=== PATIENT | female | born 1995 | race Caucasian/White ===

== ENCOUNTER 2017-03-22 12:02 | Emergency (ER) | payer OTHER ==
[2017-03-22 14:01] VITALS: BP 118/77
--- NOTE | 2017-03-22 14:51 | UC ---
Throat Pain/Nasal Raúl HPI - HPI Summary HPI Summary: 21 y/o female presents to the urgent care c/o sore throat, WEBB, mild dry cough and body aches for the past 4 days. Pt reports she had mononucleosis over the summer and her symptoms feel the same now. Pain with swallowing is 8/10. Mild fever at home. Pt denies SOB, chest pain, abdominal pain, N/V/D, rash, Hx of tick bites. She is up to date with all vaccines for her age. - History of Current Complaint Chief Complaint: UCGeneralIllness Stated Complaint: THROAT COMPLAINT Time Seen by Provider: 03/22/17 14:44 Hx Obtained From: Patient Hx Last Menstrual Period: 03/14/17 ?: No Onset/Duration: Gradual Onset, Lasting Days - 4 days, Still Present Severity: Moderate Pain Intensity: 8 Pain Scale Used: 0-10 Numeric Cough: None Associated Signs & Symptoms: Positive: Dysphagia, Fever - Epiglottits Risk Factors Epiglottis Risk Factors: Negative - Allergies/Home Medications Allergies/Adverse Reactions: Allergies Allergy/AdvReac Type Severity Reaction Status Date / Time No Known Allergies Allergy Verified 03/22/17 14:01 Home Medications: Home Medications Oral Control 1 tab PO DAILY 03/22/17 [History Confirmed 03/22/17] PMH/Surg Hx/FS Hx/Imm Hx Previously Healthy: Yes - Pt denies PMHX - Surgical History Surgical History: Yes Surgery Procedure, Year, and Place: [place] tooth extraction - Family History Known Family History: Positive: Diabetes Family History: cancer, but Pt can't recall what type - Social History Occupation: Student Lives: With Family Alcohol Use: None Substance Use Type: None Smoking Status (MU): Never Smoked Tobacco - Immunization History Vaccination Up to Date: Yes Review of Systems Constitutional: Fever Skin: Negative Eyes: Negative ENT: Sore Throat Respiratory: Cough - dry Cardiovascular: Negative Gastrointestinal: Negative Genitourinary: Negative Motor: Negative Neurovascular: Negative Musculoskeletal: Negative Neurological: Headache Psychological: Negative Is Patient Immunocompromised?: No All Other Systems Reviewed And Are Negative: Yes Physical Exam Triage Information Reviewed: Yes Vital Signs: Initial Vital Signs Temp 100.9 F 03/22/17 13:58 Pulse 125 03/22/17 13:58 Resp 14 03/22/17 13:58 BP 118/77 03/22/17 13:58 Pulse Ox 97 03/22/17 13:58 - Additional Comments VITAL SIGNS: Reviewed. GENERAL: Patient is a well developed and nourished female who is sitting comfortable in the examining table. Patient is not in any acute respiratory distress. HEAD AND FACE: No signs of trauma. No ecchymosis, hematomas or skull depressions. No sinus tenderness. EYES: PERRLA, EOMI x 2, No injected conjunctiva, no nystagmus. No photophobia. EARS: Hearing grossly intact. Ear canals and tympanic membranes are within normal limits. MOUTH: Positive pharynx with erythema, no exudates,positive palatal petechiae. B/L tonsillar enlargement with no exudate. Uvula in midline. NECK: Supple, trachea is midline, Positive anterior cervical lymphadenopathy, no JVD, no carotid bruit, no c-spine tenderness, neck with full ROM. No meningeal signs, no Kernig's or brudzinskis signs. CHEST: Symmetric, no tenderness at palpation LUNGS: Clear to auscultation bilaterally. No wheezing or crackles. CVS: Regular rate and rhythm, S1 and S2 present, no murmurs or gallops appreciated. ABDOMEN: Soft, non-tender. No signs of distention. No rebound no guarding, and no masses palpated. Bowel sounds are normal. EXTREMITIES: FROM in all major joints, no edema, no cyanosis or clubbing. NEURO: Alert and oriented x 3. No acute neurological deficits. Speech is normal and follows commands. SKIN: Dry and warm Throat Pain/Nasal Course/Dx - Course Course Of Treatment: 21 y/o female presents to the urgent care c/o sore throat, WEBB, mild dry cough and body aches for the past 4 days. Pt reports she had mononucleosis over the summer and her symptoms feel the same now. Pain with swallowing is 8/10. Mild fever at home. Pt denies SOB, chest pain, abdominal pain, N/V/D, rash, Hx of tick bites. She is up to date with all vaccines for her age.Hx obtained. Rapid strep ordered, result: negative. Viral pharyngitis. Pt with temp of 100.9F given Ibuprofen PO to decrease temp. Pt tolerated well medication. Pt Rx ibuprofen PO to alleviates symptoms of pain and swelling. Advised on hand washing to avoid spreading. Pt advised to rest, eat well and avoid strenuous exercise. If symptoms do not improve or worsen advised to return to the urgent care or f/u with her PCP for further evaluation and treatment. Pt understood and agreed with plan of care. - Differential Dx/Diagnosis Differential Diagnosis/HQI/PQRI: Laryngitis, Mononucleosis, Otitis Media, Pharyngitis, Sinusitis, Tonsillitis, URI Provider Diagnoses: 1- Viral Pharyngitis Discharge - Discharge Plan Condition: Stable Disposition: HOME Prescriptions: Ibuprofen TAB* [Motrin TAB* 800 MG] 800 mg PO Q6H #30 tab Patient Education Materials: Pharyngitis (ED) Forms: *School Release Referrals: [facility] [Outside] - If Needed Additional Instructions: 1-Please take ibuprofen PO q6-8hrs prn as instructed after meals to alleviate pain and swelling. Increase fluid intake, eat well, rest and avoid strenuous exercise 2-If symptoms do not improve or worsen please return to the urgent care or f/u with your PCP for further evaluation and treatment.
[2017-03-22] MEDS ORDERED: Ibuprofen TAB* 400 MG PO ONE (14:52)
== END 2017-03-22 15:25 | disposition home or self-care (01) ==
LOC: UCCORT 12:02
DX: J02.9 Acute pharyngitis, unspecified (principal); R50.9 Fever, unspecified; R51 Headache; M79.1 Myalgia
CPT/HCPCS: 87502; 87651; 99202; A9270-GY; G0463

== ENCOUNTER 2017-04-12 09:40 | Emergency (ER) | payer OTHER ==
[2017-04-12 10:18] VITALS: BP 127/65
--- NOTE | 2017-04-12 10:35 | UC ---
Eye Complaint HPI - HPI Summary HPI Summary: right eye redness / discharge x 1 day no eye injury , no eye pain , no change in vision, no photophobia no cold sx - History of Current Complaint Chief Complaint: UCEye Stated Complaint: RIGHT EYE COMPLAINT Time Seen by Provider: 04/12/17 10:18 Hx Obtained From: Patient Hx Last Menstrual Period: 04/09/17 ?: No Onset/Duration: Gradual Onset, Lasting Days - 1, Still Present Timing: Constant Severity Initially: Moderate Severity Currently: Moderate Location of Injury: Conjunctiva - right eye Aggravating Factor(s): Nothing Alleviating Factor(s): Nothing Associated Signs And Symptoms: Positive: Drainage (Purulent) - right eye. Negative: Photophobia, Vision Impairment Bilateral, Vision Impairment Right, Vision Impairment Left, Fever, Swelling - Allergies/Home Medications Allergies/Adverse Reactions: Allergies Allergy/AdvReac Type Severity Reaction Status Date / Time No Known Allergies Allergy Verified 04/12/17 10:10 PMH/Surg Hx/FS Hx/Imm Hx Previously Healthy: Yes - Surgical History Surgical History: Yes Surgery Procedure, Year, and Place: [place] tooth extraction - Family History Known Family History: Positive: Diabetes Family History: cancer, but Pt can't recall what type - Social History Alcohol Use: Occasionally Substance Use Type: None Smoking Status (MU): Never Smoked Tobacco - Immunization History Most Recent Influenza Vaccination: FALL 2016 Vaccination Up to Date: Yes Review of Systems Constitutional: Negative Skin: Negative Eyes: Drainage - right eye, Eye Redness - right eye ENT: Negative Respiratory: Negative Is Patient Immunocompromised?: No All Other Systems Reviewed And Are Negative: Yes Physical Exam Triage Information Reviewed: Yes Appearance: Well-Appearing, No Pain Distress, Well-Nourished Vital Signs: Initial Vital Signs Temp 97.9 F 04/12/17 10:11 Pulse 86 04/12/17 10:11 Resp 18 04/12/17 10:11 BP 127/65 04/12/17 10:11 Pulse Ox 100 04/12/17 10:11 Vital Signs Reviewed: Yes Eyes: Positive: Conjunctiva Inflamed - right eye, Discharge - right eye ENT: Positive: Normal ENT inspection, Hearing grossly normal, Pharynx normal, Pharyngeal erythema Neck: Positive: Supple, Nontender, No Lymphadenopathy Respiratory: Positive: Chest non-tender, Lungs clear, Normal breath sounds Cardiovascular: Positive: RRR, No Murmur, Pulses Normal Musculoskeletal Exam: Normal Eye Complaint Course/Dx - Differential Dx/Diagnosis Provider Diagnoses: conjunctivitis right eye Discharge - Discharge Plan Condition: Stable Disposition: HOME Prescriptions: Tobramycin 0.3% OPHTH.KAREY* 1 drop RIGHT EYE Q4H #1 btl Patient Education Materials: Conjunctivitis (ED) Referrals: Non Staff,Doctor [Primary Care Provider] - If Needed
== END 2017-04-12 10:35 | disposition home or self-care (01) ==
LOC: UCCORT 09:40
DX: H10.31 Unspecified acute conjunctivitis, right eye (principal)
CPT/HCPCS: 99212; G0463

== ENCOUNTER 2018-02-08 13:57 | Emergency (ER) | payer OTHER ==
[2018-02-08 14:59] VITALS: BP 152/74
--- NOTE | 2018-02-08 15:25 | UC ---
Throat Pain/Nasal Raúl HPI - HPI Summary HPI Summary: 22 y/o female presents to the urgent care c/o sinus congestion w/ clear nasal discharge and hoarseness for the pst 4 days. Pt reports she had mild low grade fever at the first day of symptoms. Pain w/ swallowing is 3/10. Pt states dry cough started today w/ mild +PND. Pt has taking Sudafed and Robitussin PO to alleviate symptoms. Pt denies SOB, wheezing, chest pain, abdominal pain, N/V/D. Pt is UTD w/ all vaccines for her age. - History of Current Complaint Chief Complaint: UCRespiratory Stated Complaint: SORE THROAT Time Seen by Provider: 02/08/18 15:22 Hx Obtained From: Patient Hx Last Menstrual Period: 02/06/18 ?: No Onset/Duration: Gradual Onset, Lasting Days - 4 days, Still Present, Worse Since - yesterday Severity: Mild Pain Intensity: 3 Pain Scale Used: 0-10 Numeric Cough: Nonproductive Associated Signs & Symptoms: Positive: Dysphagia, Sinus Discomfort, Nasal Discharge - clear, Other - hoarseness - Epiglottits Risk Factors Epiglottis Risk Factors: Negative - Allergies/Home Medications Allergies/Adverse Reactions: Allergies Allergy/AdvReac Type Severity Reaction Status Date / Time No Known Allergies Allergy Verified 02/08/18 14:55 PMH/Surg Hx/FS Hx/Imm Hx Previously Healthy: Yes - Pt denies PMHX - Surgical History Surgical History: Yes Surgery Procedure, Year, and Place: [place] tooth extraction - Family History Known Family History: Positive: Diabetes Family History: cancer, but Pt can't recall what type - Social History Occupation: Student Lives: With Family Alcohol Use: Weekly Alcohol Amount: weekends Substance Use Type: None Smoking Status (MU): Never Smoked Tobacco - Immunization History Most Recent Influenza Vaccination: FALL 2016 Most Recent Tetanus Shot: UTD Vaccination Up to Date: Yes Review of Systems Constitutional: Negative Skin: Negative Eyes: Negative ENT: Sore Throat, Nasal Discharge - clear, Sinus Congestion Respiratory: Cough - dry Cardiovascular: Negative Gastrointestinal: Negative Genitourinary: Negative Motor: Negative Neurovascular: Negative Musculoskeletal: Negative Neurological: Negative Psychological: Negative Is Patient Immunocompromised?: No All Other Systems Reviewed And Are Negative: Yes Physical Exam - Summary Physical Exam Summary: VITAL SIGNS: Reviewed. GENERAL: Patient is a well developed and nourished who female adolescent is sitting comfortable in the examining table. Patient is not in any acute respiratory distress. HEAD AND FACE: No signs of trauma. No ecchymosis, hematomas or skull depressions. No sinus tenderness. EYES: PERRLA, EOMI x 2, No injected conjunctiva, no nystagmus. No photophobia. EARS: Hearing grossly intact. Ear canals and tympanic membranes are within normal limits. Nose: edematous and erythematous nasal mucosa w/ clear nasal discharge. MOUTH: Positive no erythema, no tonsillar enlargement. Uvula in midline. NECK: Supple, trachea is midline, Positive anterior cervical lymphadenopathy, no JVD, no carotid bruit, no c-spine tenderness, neck with full ROM. No meningeal signs, no Kernig's or brudzinskis signs. CHEST: Symmetric, no tenderness at palpation LUNGS: Clear to auscultation bilaterally. No wheezing or crackles. CVS: Regular rate and rhythm, S1 and S2 present, no murmurs or gallops appreciated. ABDOMEN: Soft, non-tender. No signs of distention. No rebound no guarding, and no masses palpated. Bowel sounds are normal. EXTREMITIES: FROM in all major joints, no edema, no cyanosis or clubbing. NEURO: Alert and oriented x 3. No acute neurological deficits. Speech is normal and follows commands. SKIN: Dry and warm Triage Information Reviewed: Yes Vital Signs: Initial Vital Signs Temp 98.9 F 02/08/18 14:55 Pulse 92 02/08/18 14:55 Resp 16 02/08/18 14:55 BP 152/74 02/08/18 14:55 Pulse Ox 99 02/08/18 14:55 Throat Pain/Nasal Course/Dx - Course Course Of Treatment: 22 y/o female presents to the urgent care c/o sinus congestion w/ clear nasal discharge and hoarseness for the pst 4 days. Pt reports she had mild low grade fever at the first day of symptoms. Pain w/ swallowing is 3/10. Pt states dry cough started today w/ mild +PND. Pt has taking Sudafed and Robitussin PO to alleviate symptoms. Pt denies SOB, wheezing , chest pain, abdominal pain, N/V/D. Pt is UTD w/ all vaccines for her age. Hx obtained. Pt with URI on examination. Rapid strep:negative. Pt Rx ibuprofen PO to alleviates symptoms. Advised on hand washing and wear a mask to avoid spreading and rest her voice. Pt advised to rest, increase fluid intake, eat well and avoid strenuous exercise. If symptoms do not improve or worsen advised to return to the urgent care or f/u with her PCP for further evaluation and treatment. Pt's BP is elevated today advised to decrease salt in diet, monitor BP and f/u with PCP in 3 days for further management.Pt understood and agreed with plan of care. - Differential Dx/Diagnosis Differential Diagnosis/HQI/PQRI: Laryngitis, Mononucleosis, Pharyngitis, Tonsillitis, URI Provider Diagnoses: 1- Upper respiratory infection. 2-Elevated BP w/o Hx of HTN Discharge - Sign-Out/Discharge Documenting (check all that apply): Patient Departure - D/C home All imaging exams completed and their final reports reviewed: No Studies - Discharge Plan Condition: Stable Disposition: HOME Prescriptions: Ibuprofen TAB* [Motrin TAB* 600 MG] 600 mg PO Q6H PRN #30 tab PRN Reason: Sore Throat Patient Education Materials: Upper Respiratory Infection (ED), Low-Sodium Diet (ED) Forms: *School Release Referrals: [facility] [Outside] Additional Instructions: 1-Please take ibuprofen PO q6-8hrs prn as instructed after meals to alleviate pain and swelling. Increase fluid intake, eat well, rest and avoid strenuous exercise 2-If symptoms do not improve or worsen please return to the urgent care or f/u with your PCP for further evaluation and treatment. 3-Your BP is elevated today. please decrease salt in your diet, monitor BP and if it continues to be elevated please f/u with your PCP for further management - Billing Disposition and Condition Condition: STABLE Disposition: Home
== END 2018-02-08 15:58 | disposition home or self-care (01) ==
LOC: UCCORT 13:57
DX: J06.9 Acute upper respiratory infection, unspecified (principal); R03.0 Elevated blood-pressure reading, without diagnosis of hypertension
CPT/HCPCS: 87651; 99212; G0463

== ENCOUNTER 2018-06-29 09:24 | Emergency (ER) | payer OTHER ==
[2018-06-29 09:42] VITALS: BP 119/71
[2018-06-29] MEDS ORDERED: Ondansetron ODT TAB* 4 MG PO ONE (09:44)
[2018-06-29] MEDS ORDERED: Ondansetron ODT TAB* 4 MG ONE (09:56)
--- NOTE | 2018-06-29 10:08 | UC ---
Nausea/Vomiting/Diarrhea HPI - HPI Summary HPI Summary: Diarrhea started about 2 days ago. Pt had some cramping with her period. She had 2 bouts of diarrhea this morning and has vomitied twice today. Her roomate had the "stomache bug" last week. She is requesting a note for classes today. She has been able to keep a little bit of fluids down. - History of Current Complaint Chief Complaint: UCGI Stated Complaint: NAUSEA, DIARRHEA Time Seen by Provider: 06/29/18 10:07 Hx Obtained From: Patient Hx Last Menstrual Period: 06/26/18 ?: No Onset/Duration: Gradual Onset Timing: Intermittent Episodes Lasting: Severity Initially: Mild Severity Currently: Mild Pain Intensity: 0 Location: Diffuse Character: Cramping - Cramping with her period 2 days ago when diarrhea started. No recent travel outside of the [place] Aggravating Factor(s): Nothing Alleviating Factor(s): Nothing - Has been able to take fluids. Nausea/Vomiting Presence: Nauseated, Vomiting - Vomited while her once time. Vomiting Frequency: Daily - Twice this morning. Nausea/Vomiting Duration: 0-12 hours Diarrhea Presence: Yes Diarrhea Frequency: Daily - About twice a day over the past few days. Twice this morning Diarrhea Duration: 2-3 days Diarrhea Characteristics: Watery - Risk Factors Influenza Risk Factors: Negative Surgical Obstruction Risk Factor(s): Negative - Allergies/Home Medications Allergies/Adverse Reactions: Allergies Allergy/AdvReac Type Severity Reaction Status Date / Time No Known Allergies Allergy Verified 06/29/18 09:38 Home Medications: Home Medications Ibuprofen TAB* [Motrin TAB* 600 MG] 400 mg PO Q6H PRN 06/29/18 [History Confirmed 06/29/18] PMH/Surg Hx/FS Hx/Imm Hx - Additional Past Medical History Additional PMH: [place] teeth out when she was younger. Previously Healthy: Yes - Surgical History Surgical History: Yes Surgery Procedure, Year, and Place: [place] tooth extraction - Family History Known Family History: Positive: Diabetes Family History: cancer, but Pt can't recall what type - Social History Occupation: Student Lives: Dormitory/Roommates Alcohol Use: Weekly Alcohol Amount: weekends Substance Use Type: None Smoking Status (MU): Never Smoked Tobacco - Immunization History Most Recent Influenza Vaccination: FALL 2016 Most Recent Tetanus Shot: UTD Vaccination Up to Date: Yes Review of Systems All Other Systems Reviewed And Are Negative: Yes Constitutional: Positive: Negative Skin: Positive: Negative Eyes: Positive: Negative ENT: Positive: Negative Respiratory: Positive: Negative Cardiovascular: Positive: Negative Gastrointestinal: Positive: Vomiting, Diarrhea, Nausea Genitourinary: Positive: Negative Motor: Positive: Negative Neurovascular: Positive: Negative Musculoskeletal: Positive: Negative Neurological: Positive: Negative Psychological: Positive: Negative Is Patient Immunocompromised?: No Physical Exam - Summary Physical Exam Summary: Well appearing college age female in no distress. Triage Information Reviewed: Yes Appearance: Well-Appearing, No Pain Distress, Well-Nourished Vital Signs: Initial Vital Signs Temp 98.4 F 06/29/18 09:39 Pulse 89 06/29/18 09:39 Resp 15 06/29/18 09:39 BP 119/71 06/29/18 09:39 Pulse Ox 99 06/29/18 09:39 Vital Signs Reviewed: Yes Eye Exam: Normal ENT Exam: Normal Neck exam: Normal Respiratory Exam: Normal Cardiovascular Exam: Normal Abdominal Exam: Normal Abdomen Description: Positive: Nontender, No Organomegaly, Soft Bowel Sounds: Positive: Present Musculoskeletal Exam: Normal Neurological: Positive: Alert, Muscle Tone Normal Psychological Exam: Normal Skin Exam: Normal Naus/Vom/Diarrhea Course/Dx - Course Course Of Treatment: Pt is well-appearing with, more than likely, the "stomach bug" which her college roomate had in the past week. Pt vomitied twice this morning. Once here after being given Zofran. Se is able to retain a small amount of intermittent fluids. Diarrhea twice this morning. I advised her to take OTC Loperamide as directed for the diarrhea. We discussed worsening of symptoms to be rechecked at the [facility] or go to the ER. Pt is agreeable to this. She has been pain free here. - Differential Dx/Diagnosis Differential Diagnoses - Female: Vomiting, Diarrhea Provider Diagnosis: Viral syndrome Condition At Discharge: Good Discharge - Sign-Out/Discharge Documenting (check all that apply): Patient Departure All imaging exams completed and their final reports reviewed: No Studies - Discharge Plan Condition: Good Disposition: HOME Prescriptions: Ondansetron TAB* [Zofran 4 MG Tab*] 4 mg PO Q6H PRN #8 tab PRN Reason: Nausea Patient Education Materials: Acute Nausea and Vomiting (ED) Forms: *School Release Referrals: [facility] [Outside] No Primary Care Phys,NOPCP [Primary Care Provider] - Additional Instructions: May purchase and take Loperamide according to directions. Gradually increase your diet as the day progresses. Stick with fluids most of the day and then soup and crackers later this evening. Follow up at the [facility] if no improvement in 1-2 days. Go to the ER if symptoms worsen, you feel like you are going to pass out. - Billing Disposition and Condition Condition: GOOD Disposition: Home
== END 2018-06-29 10:36 | disposition home or self-care (01) ==
LOC: UCCORT 09:24
DX: B34.9 Viral infection, unspecified (principal); R19.7 Diarrhea, unspecified; R11.2 Nausea with vomiting, unspecified; R10.9 Unspecified abdominal pain
CPT/HCPCS: 99212; A9270-GY; G0463

== ENCOUNTER 2019-07-04 09:54 | Emergency (ER) | payer OTHER ==
[2019-07-04 10:12] VITALS: BP 125/83
--- NOTE | 2019-07-04 10:34 | UC ---
Throat Pain/Nasal Raúl HPI - HPI Summary HPI Summary: 23-year-old female whose had a sore throat and fever since yesterday. - History of Current Complaint Chief Complaint: UCRespiratory Stated Complaint: ST/BODY ACHES Time Seen by Provider: 07/04/19 09:55 Hx Obtained From: Patient Hx Last Menstrual Period: 07/03/19 ?: No Onset/Duration: Gradual Onset Severity: Mild Pain Intensity: 6 Cough: None Associated Signs & Symptoms: Positive: Fever - Allergies/Home Medications Allergies/Adverse Reactions: Allergies Allergy/AdvReac Type Severity Reaction Status Date / Time No Known Allergies Allergy Verified 07/04/19 10:11 Home Medications: Home Medications Ibuprofen TAB* [Motrin TAB* 600 MG] 400 mg PO Q6H PRN 06/29/18 [History Confirmed 07/04/19] Levonorgestrel-Ethin Estradiol [Lessina-28] 1 tab PO DAILY 07/04/19 [History Confirmed 07/04/19] PMH/Surg Hx/FS Hx/Imm Hx Previously Healthy: Yes - Surgical History Surgical History: Yes Surgery Procedure, Year, and Place: [place] tooth extraction - Family History Known Family History: Positive: Diabetes Family History: cancer, but Pt can't recall what type - Social History Occupation: Student Lives: Dormitory/Roommates Alcohol Use: Weekly Alcohol Amount: weekends Substance Use Type: None Smoking Status (MU): Never Smoked Tobacco - Immunization History Most Recent Influenza Vaccination: FALL 2016 Most Recent Tetanus Shot: UTD Vaccination Up to Date: Yes Review of Systems All Other Systems Reviewed And Are Negative: Yes Constitutional: Positive: Fever ENT: Positive: Sore Throat Is Patient Immunocompromised?: No Physical Exam Triage Information Reviewed: Yes Appearance: Well-Appearing, No Pain Distress, Well-Nourished Vital Signs: Initial Vital Signs Temp 99.0 F 07/04/19 10:07 Pulse 110 07/04/19 10:07 Resp 16 07/04/19 10:07 BP 125/83 07/04/19 10:07 Pulse Ox 99 07/04/19 10:07 Vital Signs Reviewed: Yes Eyes: Positive: Conjunctiva Clear ENT: Positive: Pharyngeal erythema, TMs normal, Uvula midline. Negative: Tonsillar swelling, Tonsillar exudate, Trismus, Muffled voice, Hoarse voice Neck: Positive: Supple, Nontender, Enlarged Nodes @ - Very minimal tonsillar lymph node enlargement. Respiratory: Positive: Lungs clear, Normal breath sounds, No respiratory distress, No accessory muscle use Cardiovascular: Positive: RRR, No Murmur, Pulses Normal, Brisk Capillary Refill Abdomen Description: Positive: Nontender, No Organomegaly, Soft. Negative: CVA Tenderness (R), CVA Tenderness (L), Distended, Guarding, Hepatomegaly, Splenomegaly Bowel Sounds: Positive: Present Musculoskeletal Exam: Normal Neurological Exam: Normal Psychological Exam: Normal Skin Exam: Normal Throat Pain/Nasal Course/Dx - Course Course Of Treatment: Rapid strep test: Negative Patient is comfortable here and nontoxic. Pulse was rechecked prior to discharge and was 80 BPM. - Differential Dx/Diagnosis Provider Diagnosis: Pharyngitis Discharge ED - Sign-Out/Discharge Documenting (check all that apply): Patient Departure All imaging exams completed and their final reports reviewed: No Studies - Discharge Plan Condition: Good Disposition: HOME Patient Education Materials: Pharyngitis (ED) Forms: *School Release Referrals: No Primary Care Phys,NOPCP [Primary Care Provider] - JAIRO MUNOZ [Maria LuzBUSINESS, APPLICATION, OTHER] - Additional Instructions: Warm saltwater gargles, throat lozenges, follow up at the [facility] if no improvement in 3 or 4 days. - Billing Disposition and Condition Condition: GOOD Disposition: Home
== END 2019-07-04 10:37 | disposition home or self-care (01) ==
LOC: UCCORT 09:54
DX: J02.9 Acute pharyngitis, unspecified (principal)
CPT/HCPCS: 87651; 99211; G0463